=== PATIENT | male | born 1965 | race Caucasian/White ===

== ENCOUNTER 2024-11-12 08:29 | Outpatient (AMB) | payer OTHER, SELFPAY ==
--- OUTSIDE RECORDS SUMMARY | 2024-11-12 08:40 | XMS_ITS | Clinical Summary ---
Author Organization [facility] Address [address] [facility] [address] [place] [address] Care Team Providers Care Manager Lighting Name Role Phone Colt Birmingham MD Primary Care Provider [phone] Encounters Date Type Department Care Team Description 10/08/2024 Telephone [facility] Neurology [address] [place] [address] Nikolas Tipton MD from Last 3 Months Social History Tobacco Use Types Packs/Day Years Used Date Smoking Tobacco: Never Assessed Sex and Gender Information Value Date Recorded Sex Assigned at Male 11/03/2024 2:08 PM EDT Legal Sex Male 2:49 PM EDT Gender Identity Male 11/03/2024 2:08 PM EDT Sexual Orientation Not on file Plan of Treatment Health Maintenance Due Date Last Done Comments CT Colonography 1964 Colonoscopy 1964 Colorectal Cancer Screening 1964 FIT-DNA 1964 FIT 1964 FOBT 1965 HIV Screening 1964 Lipid Panel 1964 Sigmoidoscopy 1964 MMR Vaccines (1 of 1 - Standard series) 01/03/1965 Hepatitis C Screening 01/03/1982 Pneumococcal Vaccine: 50+ Years (1 of 1 - PCV) 01/03/2014 Zoster Vaccines (1 of 2) 01/03/2014 DTaP/Tdap/Td Vaccines (1 - Tdap) 05/24/2019 05/23/2019 Depression Screening 04/09/2024 Influenza Vaccine (#1) 2024 01/16/2024, 2019 COVID-19 Vaccine Completed 01/16/2024, , 06/03/2020, Additional history exists HIB Vaccines Aged Out No longer eligi ble based on patient's age to complete this topic HPV Vaccines Aged Out No longer eligi ble based on patient's age to complete this topic Hepatitis A Vaccines Aged Out No long er eligible based on patient's age to complete this topic Hepatitis B Vaccines Aged Out No long er eligible based on patient's age to complete this topic IPV Vaccines Aged Out No longer eligi ble based on patient's age to complete this topic Meningococcal B Vaccine Aged Out No l onger eligible based on patient's age to complete this topic Meningococcal Vaccine Aged Out No melvin joaquin eligible based on patient's age to complete this topic Rotavirus Vaccines Aged Out No longer eligible based on patient's age to complete this topic Insurance [facility] HMO [place], [place] Care Teams Manager Lighting Relationship Specialty Start Date End Date Colt Birmingham MD [address] [place] [id number] PCP - General Flying [employer] Worker 09/19/24
--- OUTSIDE RECORDS SUMMARY | 2024-11-12 08:40 | XMS_ITS | Clinical Summary ---
Author Organization [facility] Address [address] [place] [address] Care Team Providers Care Nut Roaster Helper Name Role Phone Hari Adkins MD Primary Care Provider [phone] Allergies Active Allergy Reactions Criticality Noted Date Comments Aspirin Other (See Comments) 07/09/2014 Stomach ache and dizziness Pollen Extract 11/29/2016 Seasonal 11/29/2016 Medications Medication Sig Dispensed Refills Start Date End Date Status HYDROcodone-acetamin ophen (NORCO) 5-325 MG per tablet Take 1-2 tabs every 4 hours as needed for pain following your right shoulder surgery 40 tablet 0 04/26/2022 Active Active Problems Problem Noted Date Diagnosed Date Radial tunnel syndrome, right 06/14/2022 Radial tunnel syndrome, left 06/14/2022 Subacromial bursitis of right shoulder joint Impingement syndrome of right shoulder Calcific tendinitis of right shoulder 12/06/2021 Postop check 02/05/2018 Chronic left shoulder pain 01/09/2018 Arthritis of left acromioclavicular joint 2017 Shoulder stiffness, right 05/29/2017 Chronic right shoulder pain 11/29/2016 Family History Medical History Relation Name Comments Diabetes Father Hypertension Father Cancer Maternal Aunt Hypertension Maternal Grandfather Hypertension Maternal Grandmother Cancer Maternal Uncle Hypertension Mother Hypertension Paternal Grandfather Hypertension Paternal Grandmother Relation Name Status Comments Father Maternal Aunt Maternal Grandfather Maternal Grandmother Maternal Uncle Mother Paternal Grandfather Paternal Grandmother Social History Tobacco Use Types Packs/Day Years Used Date Smoking Tobacco: Never Alcohol Use Standard Drinks/Week Comments Yes 0 (1 standard drink = 0.6 oz pur e alcohol) social Sex and Gender Information Value Date Recorded Sex Assigned at Male 06/14/2022 9:38 AM EST Gender Identity Male 06/14/2022 9:38 AM EST Sexual Orientation Not on file Job Start Date Occupation Industry Not on file Not on file Not on file Last Filed Vital Signs Vital Sign Reading Time Taken Comments Blood Pressure - - Pulse - - Temperature - - Respiratory Rate - - Oxygen Saturation - - Inhaled Oxygen Concentration - - Weight 80.7 kg (178 lb) 06/14/2022 9:13 AM EST Height 175.3 cm (5' 9 ) 06/14/2022 9:13 AM EST Body Mass Index 26.29 06/14/2022 9:13 AM EST Plan of Treatment Health Maintenance Due Date Last Done Comments Hepatitis C Screening 1964 COVID-19 Vaccine (#1) 1964 Depression Screening 1976 BMI Counseling 01/03/1982 Preventative Health Evaluation 01/03/1982 Colon Cancer Screening (Colonoscopy) 01/03/2009 Shingrix-Zoster Vaccine (1 of 2) 01/03/2014 DTap / Tdap / Td (1 - Tdap) 05/24/2019 05/23/2019 Influenza Vaccine (#1) 2024 03/24/2020 RSV Adult > 60+ Yrs or Pregn ant (1 - 1-dose 75+ series) 01/03/2039 Hepatitis B Vaccines Aged Out No long er eligible based on patient's age to complete this topic Pneumococcal Vaccine Aged Out No long er eligible based on patient's age to complete this topic RSV Ped < 20 months Aged Out No longe r eligible based on patient's age to complete this topic Care Teams Nut Roaster Helper Relationship Specialty Start Date End Date Hari Adkins MD [address] [place] [id number] PCP - General Internal Medicine 11/17/16
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
--- NOTE | 2024-11-12 08:42 | MHC.OFFVIS ---
Vital Signs 11/12/24 08:53 Weight 173 lb BP 120/84 Blood Pressure Location Rt brachial Position Sitting Pulse 67 Pulse Source Pulse Oximeter Pulse Oximetry (%) 96 Oxygen Delivery Method Room Air Intake Visit Reasons: ENP-Tremor of Right Hand Intake Note: NPV referred by PCP Colt [place] for tremor of right hand- has been occurring for about 6-7 month and weakness. Feeling pins and needles Allergies aspirin Allergy (Verified 11/12/24 08:49) Unknown HPI Comments Details: 59y/o Right handed male comes for evaluation of Right hand tremor. About 2 1/2 years ago he had Right shoulder injury and had ? fracture .He did not do rehab . He had numbness and tingling after surgery but has improved. He also has weakness and difficulty with hand movements . He noticed tremors at rest in his right hand about mths which is intermittent and mostly when he is relaxed. No voice change. His handwriting is poor - cannot write anymore. Using utensils- difficult Dressing- slower Shower- slower Turning in bed - hard Gait-feels his balance is off. No falls No depression or anxiety Sleep- He always talked in sleep Normal bowel movements No hallucinations Cognition- mild No exposure to pesticides , agent orange toxins etc No exposure to neuroleptics He had a mild head injury - more than 5 years ago No family history He has increased frequency and urgency [facility] Medical History (Updated 11/12/24 @ 10:40 by Linda Do MD) Tremor of right hand Right shoulder injury Hyperlipemia Pinguecula Glaucoma Tremor of right hand Surgical History (Updated 11/12/24 @ 08:57 by Blanca Limon CMA) Hx of colonoscopy H/O rotator cuff surgery Physical Exam Const Orientation/consciousness: patient oriented x3 Eyes Pupils: Equal, round and reactive pupils present Neck Neck: Yes no meningeal signs Neuro Other: Right hand intermittent rest tremors Right UE 1 + cogwheel rigidty FFM and foot taps - mild decreased on the right Gait- normal base, normal stride and posture, mild decreased arm swing on the Right decreased shoulder shrug on the right Mild decreased blink , normal facial expression General: patient oriented x3, moves all extremities, no meningeal signs and no focal motor deficits Cranial nerves: Yes Equal, round and reactive pupils present, Yes Bilaterally intact EOM present, Yes Nystagmus not present, Yes Normal facial strength present, Yes Midline tongue present and Yes Symmetric palate elevation present Cognition (Neuro): normal cognition Motor exam (neuro): Tremors during motor activity present Deep tendon reflexes (DTR's): Right triceps reflex intensity grade: 1+, Left triceps reflex intensity grade: 1+, Rt Biceps (C5, C6): 1+, Left biceps reflex intensity grade: 1+, Right brachioradialis reflex intensity grade: 1+, Left brachioradialis reflex intensity grade: 1+, Right patellar reflex intensity grade: 1+ and Left patellar reflex intensity grade: 1+ Coordination: [id number] test normal Assessment & Plan Assessment & Plan (1) Tremor of right hand: Comment: likely Parkinsons Code(s): R25.1 - Tremor, unspecified Category: Medical (2) Right shoulder injury: Code(s): S49.91XA - Unspecified injury of right shoulder and upper arm, initial encounter Category: Medical Qualifiers: Encounter type: sequela Qualified Code(s): S49.91XS - Unspecified injury of right shoulder and upper arm, sequela Plan Discussed the diagnosis in detail I will evaluate him with MRI brain - will consider DMITRY scan Refer to OT for hand and shoulder therapy F/u Info on APDA, PDF was given This was a counseling predominated session Orders: Orders OT Evaluation and Treatment Today R25.1 - Tremor, unspecified, S49.91XA - Unspecified injury of right shoulder and upper arm, initial encounter MR head/brain wo con Today R25.1 - Tremor, unspecified Coding Level of Care Code New Pt Level 4 (70845) Diagnoses Tremor of right hand R25.1 Injury of right shoulder, sequela S49.91XS Encounter type: sequela
[2024-11-12 08:53] VITALS: BP 120/84; PULSE 67; O2SAT 96
== END 2024-11-12 10:13 | disposition home or self-care (01) ==
PROVIDERS: Visit Provider Psychiatry & Neurology Neurology
DX: R25.1 Tremor, unspecified (principal); S49.91XS Unspecified injury of right shoulder and upper arm, sequela
CPT/HCPCS: 99204

== ENCOUNTER → 2024-12-01 08:07 | Outpatient (BNV) | payer OTHER, SELFPAY | PROVIDERS: Visit Provider Radiology Diagnostic Radiology | DX: R25.1 Tremor, unspecified (principal) | CPT/HCPCS: 70551 ==

== ENCOUNTER 2024-12-01 08:11 | Outpatient (REF) | payer OTHER, SELFPAY ==
--- NOTE | ~2024-12-01 | MR_ITS ---
EXAMINATION: MR BRAIN WITHOUT CONTRAST CLINICAL INFORMATION: Tremors, unspecified. COMPARISON: None available. TECHNIQUE: MRI of the brain was obtained using routine sequences without contrast. FINDINGS: No restricted diffusion. No susceptibility signal abnormality within the substantia nigra. No absent swallow tail sign. No acute intracranial hemorrhage, mass effect, midline shift, hydrocephalus or herniation. Romero-white matter differentiation is normal. Flow-void signal within the main cerebral vessels is normal. Posterior cranial fossa contents demonstrated no signal abnormality or mass effect. Normal position of the cerebellar tonsils. Sellar/suprasellar region is normal. Small cavum septum pellucidum, congenital. Slight elevated position of the right internal jugular bulb. MR/MR head/brain wo con IMPRESSION: No acute or structural brain abnormality. Electronically signed by: Chris Fowler MD 12/01/2024 09:17 AM EDT
--- OUTSIDE RECORDS SUMMARY | 2024-12-01 08:26 | XMS_ITS | Clinical Summary ---
Author Organization [facility] Address [address] [place] [address] Care Team Providers Care Note Keeper Name Role Phone Hari Adkins MD Primary Care Provider [phone] Allergies Active Allergy Reactions Criticality Noted Date [...] age to complete this topic Care Teams Note Keeper Relationship Specialty Start Date End Date Hari Adkins MD [address] [place] [id number] PCP - General Internal Medicine 11/17/16
--- OUTSIDE RECORDS SUMMARY | 2024-12-01 08:26 | XMS_ITS | Clinical Summary ---
Author Organization [facility] Address [address] [facility] [address] [place] [address] Care Team Providers Care Woodwinds Teacher Name Role Phone Colt [place] MD Primary Care Provider [phone] Encounters Date Type Department Care Team Description 10/08/2024 Telephone [facility] Neurology [address] [place] [address] Nikolas Tipton MD from Last [...] patient's age to complete this topic Insurance [facility] HMO [place], [place] Care Teams Woodwinds Teacher Relationship Specialty Start Date End Date Colt [place] MD [address] [place] [id number] PCP - General Whiting Can Worker 09/19/24
--- OUTSIDE RECORDS SUMMARY | 2024-12-01 08:26 | XMS_ITS | Clinical Summary ---
Author Organization [facility] [address] Counts [address] [facility] Building Address [address] [place] [address] Phone Care Team Providers Care Personal Loan Specialist Name Role Phone Colt [place] MD Primary Care Provider [phone] Allergies Active Allergy Reactions Criticality Noted Date [...] Description 11/04/2024 8:08 AM EDT Anesthesia Event [facility]oscopy [address] [place] [address] Roni Slade MD 11/04/2024 7:37 AM EDT - 11/04/2024 11:59 PM EDT Hospital Encounter [facility] [address] [place] [address] Amanda Coleman DO Vermes, Rachie, CRNA Walsh, Michael, DO Colon cancer screening Discharge Disposition: Home or Self Care from Last 3 Months Immunizations Name Administration [...] 11/04/2024 8:24 AM EDT Colon cancer screening LIPID PANEL WITH REFLEX TO DIRECT LDL Routine 08/20/2024 8:45 AM EDT Screening for hyperlipidemia HM HEPATITIS C SCREENING Routine 02/21/2017 from [...] care physician. Narrative 11/04/2024 8:23 AM EDT [facility] GI Patient Name: Kyle Geiger Procedure Date: 11/04/2024 8:00 AM Date of : 1965 Age: 59 Gender: Male Note Status: Finalized Attending MD: Amanda Coleman DO, [id number] Procedure Date No Time: 11/04/2024 Procedure: Colonoscopy [...] the physician, the nurse, the anesthesiologist, the sponge fisherman and the location and measurement technician in the pre-procedure area in the [...] colon K64.9, Unspecified hemorrhoids CPT copyright 2020 [employer]. All rights reserved. The codes documented in this report are preliminary and upon dice manager review may be revised to meet current compliance requirements. AMANDA Coleman DO 11/04/2024 8:23:31 AM This report has been signed electronically.Amanda Coleman DO Number of Addenda: 0 Note Initiated On: 11/04/2024 8:00 AM Scope Withdrawal Time: 0 hours 6 minutes 27 seconds Scope In: 8:12:46 AM Scope Out: 8:22:26 AM Endoscopy Department at [facility] - [address] [place] [id number] Procedure Note Amanda Coleman DO - 11/04/2024 [facility] GI Patient Name: Kyle Geiger Procedure Date: 11/04/2024 8:00 AM Date of : 1965 Age: 59 Gender: Male Note Status: Finalized Attending MD: Amanda Coleman DO, [id number] Procedure Date No Time: 11/04/2024 Procedure: Colonoscopy [...] the physician, the nurse, the anesthesiologist, the sponge fisherman and thetechnician in the pre-procedure area in [...] colon K64.9, Unspecified hemorrhoids CPT copyright 2020 [employer]. All rights reserved. The codes documented in this report are preliminary and upon dice manager reviewmay be revised to meet current compliance requirements. AMANDA Coleman DO 11/04/2024 8:23:31 AM This report has been signed electronically.Amanda Coleman DO Number of Addenda: 0 Note Initiated On: 11/04/2024 8:00 AM Scope Withdrawal Time: 0 hours 6 minutes 27 seconds Scope In: 8:12:46 AM Scope Out: 8:22:26 AM Endoscopy Department at [facility] - [address] [place] [phone] IMPRESSION: - Hemorrhoids found on perianal exam. - The entire examined colon is normal on direct and retroflexion views. - No specimens collected. Recommendation: - Discharge patient to home. - Resume previous diet. - Continue present medications. - Repeat colonoscopy in 10 years for screening purposes. - Return to primary care physician. Amanda Coleman DO GI~PROCEDURE ORDERABLES Final Re sult * (ABNORMAL) Lipid panel with reflex to direct LDL (08/20/2024 8:45 AM EDT) Cholesterol 248(H) 0 - 200 mg/dL LAB CHEMISTRY METHOD 08/20/2024 12:26 PM EDT [facility] Triglycerides 51 0 - 150 mg/dL LAB CHEMISTRY METHOD 08/20/2024 12:26 PM EDT [facility] HDL 94 >=40 mg/dL LAB CHEMISTRY METHOD 08/20/2024 12:26 PM EDT [facility] LDL Calculated 144(H) 0 - 100 mg/dL LAB CHEMISTRY METHOD 08/20/2024 12:26 PM EDT [facility] VLDL Cholesterol Jared 10.2 mg/dL LAB CHEMISTRY METHOD 08/20/2024 12:26 PM EDT [facility] Non HDL Chol. (LDL+VLDL) 154(H) <145 mg/dL LAB CHEMISTRY METHOD 08/20/2024 12:26 PM EDT [facility] Chol/HDL Ratio 2.6 0.0 - 4.4 LAB CHEMISTRY METHOD 08/20/2024 12:26 PM EDT [facility] Blood Venous blood specimen / Unknown Venipuncture / Unknown 08/20/2024 8:45 AM EDT 08/20/2024 8:45 AM EDT Colt [place] MD LAB BLOOD ORDERABLES Final Res ult [facility] [address] [place] [address], * Hepatitis C Screening (02/21/2017) [facility] Hepatitis C Screening abstracted Historical Provider HEALTH MAINTENANCE Final Result from Last 3 Months or Most Recently Relevant to Health Maintenance Insurance [facility] Care Teams Personal Loan Specialist Relationship Specialty Start Date End Date Colt [place] MD [address] [place] [id number] PCP - General Internal Medicine 03/18/24
--- OUTSIDE RECORDS SUMMARY | 2024-12-01 08:26 | XMS_ITS ---
[facility] Encounters Encounter Type Encounter Reason Primary Diagnosis Location Date Ambulatory [facility] [place] 02/20/2023 Ambulatory [facility] [place] 01/05/2023 Ambulatory [facility] [place] 01/05/2023 Ambulatory [facility] [place] 12/14/2022 Ambulatory [facility] [place] 11/09/2022 Ambulatory [facility] [place] 11/09/2022 Ambulatory [facility] [place] 11/09/2022 Ambulatory [facility] [place] 11/09/2022 Ambulatory [facility] [place] 10/05/2022 Ambulatory [facility] [place] 08/14/2022 Ambulatory [facility] [place] 08/14/2022 Ambulatory [facility] [place] 08/10/2022 Ambulatory [facility] [place] 08/04/2022 Care Team Organization Name Specialty Phone Email Start Date End Da te [facility] [place] H[facility]ILTON [facility]PSON Primary Care 03/09/2022 11/26/2023
== END 2024-12-01 08:12 | disposition home or self-care (01) ==
LOC: HO.MRI 08:11
PROVIDERS: Visit Provider Psychiatry & Neurology Neurology
DX: R25.1 Tremor, unspecified (principal)
CPT/HCPCS: 70551

== ENCOUNTER 2025-03-19 12:29 | Outpatient (AMB) | payer OTHER, SELFPAY ==
--- NOTE | 2025-03-19 12:23 | MHC.OFFVIS ---
Vital Signs 03/19/25 12:32 Height 5 ft 9 in Weight 182 lb 8 oz BMI 26.9 BP 142/86 H Blood Pressure Location Rt brachial Position Sitting Pulse 71 Pulse Source Pulse Oximeter Pulse Oximetry (%) 97 Oxygen Delivery Method Room Air Intake Visit Reasons: 4mnth follow up Intake Note: Follow up Right shoulder injury, tremor right hand Video Production Intern Required: No Accompanied by: Self / Same As Patient Allergies aspirin Allergy (Verified 03/19/25 12:23) Unknown Medication List - Last Reconciled 03/19/25 by Linda Do MD No Known Home Meds HPI Comments Details: 59y/o Right handed male comes for follow up of Right hand tremor. he noticed decrease in tremors He has left sciatica and is walking funny because of it. History from his initial visit- bout 2 1/2 years ago he had Right shoulder injury and had ? fracture .He did not do rehab . He had numbness and tingling after surgery but has improved. He also has weakness and difficulty with hand movements . He noticed tremors at rest in his right hand about mths which is intermittent and mostly when he is relaxed. No voice change. His handwriting is poor - cannot write anymore. Using utensils- difficult Dressing- slower Shower- slower Turning in bed - hard Gait-feels his balance is off. No falls No depression or anxiety Sleep- He always talked in sleep Normal bowel movements No hallucinations Cognition- mild No exposure to pesticides , agent orange toxins etc No exposure to neuroleptics He had a mild head injury - more than 5 years ago No family history He has increased frequency and urgency [facility] Medical History Tremor of right hand Right shoulder injury Hyperlipemia Pinguecula Glaucoma Tremor of right hand Surgical History Hx of colonoscopy H/O rotator cuff surgery Physical Exam Vital Signs: Last Vital Signs Pulse 71 03/19/25 12:32 BP 142/86 H 03/19/25 12:32 Pulse Ox 97 03/19/25 12:32 Oxygen Delivery Method Room Air 03/19/25 12:32 BMI result Body Mass Index 26.9 Const Orientation/consciousness: patient oriented x3 Eyes Pupils: Equal, round and reactive pupils present Neck Neck: Yes no meningeal signs Neuro Other: Right hand intermittent rest tremors Right UE 1 + cogwheel rigidty FFM and foot taps - mild decreased on the right Gait- normal base, normal stride and posture, mild decreased arm swing on the Right decreased shoulder shrug on the right Mild decreased blink , normal facial expression General: patient oriented x3, moves all extremities, no meningeal signs and no focal motor deficits Cranial nerves: Yes Equal, round and reactive pupils present, Yes Bilaterally intact EOM present, Yes Nystagmus not present, Yes Normal facial strength present, Yes Midline tongue present and Yes Symmetric palate elevation present Cognition (Neuro): normal cognition Motor exam (neuro): Tremors during motor activity present Coordination: [id number]-zj-qquh test normal Assessment & Plan Assessment & Plan (1) Tremor of right hand: Comment: likely Parkinsons Code(s): R25.1 - Tremor, unspecified Category: Medical (2) Right shoulder injury: Code(s): S49.91XA - Unspecified injury of right shoulder and upper arm, initial encounter Category: Medical Qualifiers: Encounter type: sequela Qualified Code(s): S49.91XS - Unspecified injury of right shoulder and upper arm, sequela Plan MRI brain - normal - will consider DMITRY scan Refer to OT for hand and shoulder therapy F/u Info on APDA, PDF was given This was a counseling predominated session Coding Level of Care Code Est Pt Level 4 (57613) Add On Problem Visit Only Diagnoses Tremor of right hand R25.1 Injury of right shoulder, sequela S49.91XS Encounter type: sequela
[2025-03-19 12:32] VITALS: BP 142/86; PULSE 71; O2SAT 97; BMI 26.9
--- OUTSIDE RECORDS SUMMARY | 2025-03-19 18:46 | XMS_ITS | Clinical Summary ---
Author Organization [facility] [address] [facility] Building Address [address] [place] [address] Phone Care Team Providers Care Fire Services Plumber Name Role Phone Colt [place] MD Primary Care Provider [phone] Allergies Active Allergy Reactions Criticality Noted Date [...] Glaucoma suspect 05/18/2010 Pinguecula 05/18/2010 Hyperlipidemia 12/30/2009 Immunizations Immunization Administration Dates Next Due Influenza Quadravalent, MDCK [...] Safety Answer Date Record ed Physical Abuse Unrecognized value 11/04/2024 Verbal Abuse Unrecognized value 11/04/2024 Sex and Gender Information Value Date Recorded Sex Assigned at Male 10/22/2024 3:12 PM EDT Legal Sex Male 4:48 PM EST Gender Identity Male 10/22/2024 3:12 PM EDT Sexual Orientation Not on file Last Filed Vital Signs [...] of Health Screening 03/19/2022 Depression Screening 04/09/2024 COVID-19 Vaccine (5 - season) 2024 01/16/2024, 05/25/2021, 06/03/2020, Additional history exists Influenza Vaccine (#1) 2024 01/16/2024, 2019 DTaP,Tdap,and Td Vaccines (2 - Td or Tdap) 05/23/2029 05/23/2019 Cholesterol Screening (Lipid Panel) 08/20/2029 08/20/2024 Colorectal Cancer Screening: Colonoscopy 11/04/2034 11/04/2024, 07/09/2014 RSV Immunization Adult Patients (1 - 1-dose 75+ series) 01/03/2039 Hepatitis C Screening Completed 02/21/2017 HIB Vaccines Aged Out No longer eligi [...] Maintenance Results * COLONOSCOPY Anesthesia - MAC; [facility] ENDOSCOPY (11/04/2024 8:24 AM EDT) Anatomical Region [...] care physician. Narrative 11/04/2024 8:23 AM EDT [facility] GI Patient Name: Kyle Geiger Procedure Date: 11/04/2024 8:00 AM Date of : 1965 Age: 59 Gender: Male Note Status: Finalized Attending MD: Amanda Coleman DO, [id number] Procedure Date No Time: 11/04/2024 Procedure: Colonoscopy [...] the physician, the nurse, the anesthesiologist, the certified physician's assistant and the technicians and trades workers in the pre-procedure area in the endoscopy [...] colon K64.9, Unspecified hemorrhoids CPT copyright 2020 [employer]. All rights reserved. The codes documented in this report are preliminary and upon social media campaign manager review may be revised to meet current compliance requirements. AMANDA Coleman DO 11/04/2024 8:23:31 AM This report has been signed electronically.Amanda [place] DO Number of Addenda: 0 Note Initiated On: 11/04/2024 8:00 AM Scope Withdrawal Time: 0 hours 6 minutes 27 seconds Scope In: 8:12:46 AM Scope Out: 8:22:26 AM Endoscopy Department at [facility] - [address] [place] [phone] Procedure Note Amanda Coleman DO - 11/04/2024 [facility] GI Patient Name: Kyle Geiger Procedure Date: 11/04/2024 8:00 AM Date of : 1965 Age: 59 Gender: Male Note Status: Finalized Attending MD: Amanda Coleman DO, [id number] Procedure Date No Time: 11/04/2024 Procedure: Colonoscopy [...] the physician, the nurse, the anesthesiologist, the certified physician's assistant and thetechnician in the pre-procedure area in [...] colon K64.9, Unspecified hemorrhoids CPT copyright 2020 [employer]. All rights reserved. The codes documented in this report are preliminary and upon social media campaign manager reviewmay be revised to meet current compliance requirements. AMANDA Coleman DO 11/04/2024 8:23:31 AM This report has been signed electronically.Amanda Coleman DO Number of Addenda: 0 Note Initiated On: 11/04/2024 8:00 AM Scope Withdrawal Time: 0 hours 6 minutes 27 seconds Scope In: 8:12:46 AM Scope Out: 8:22:26 AM Endoscopy Department at [facility] - [address] [place] [phone] IMPRESSION: - Hemorrhoids found on perianal exam. - The entire examined colon is normal on direct and retroflexion views. - No specimens collected. Recommendation: - Discharge patient to home. - Resume previous diet. - Continue present medications. - Repeat colonoscopy in 10 years for screening purposes. - Return to primary care physician. us Amanda Coleman DO GI~PROCEDURE ORDERABLES Final Re sult * (ABNORMAL) Lipid panel with reflex to direct LDL (08/20/2024 8:45 AM EDT) Cholesterol 248(H) 0 - 200 mg/dL LAB CHEMISTRY METHOD 08/20/2024 12:26 PM [facility] Triglycerides 51 0 - 150 mg/dL LAB CHEMISTRY METHOD 08/20/2024 12:26 PM [facility] HDL 94 >=40 mg/dL LAB CHEMISTRY METHOD 08/20/2024 12:26 PM T [facility] LDL Calculated 144(H) 0 - 100 mg/dL LAB CHEMISTRY METHOD 08/20/2024 12:26 PM [facility] VLDL Cholesterol Jared 10.2 mg/dL LAB CHEMISTRY METHOD 08/20/2024 12:26 PM [facility] Non HDL Chol. (LDL+VLDL) 154(H) <145 mg/dL LAB CHEMISTRY METHOD 08/20/2024 12:26 PM EDT [facility] Chol/HDL Ratio 2.6 0.0 - 4.4 LAB CHEMISTRY METHOD 08/20/2024 12:26 PM EDT [facility] Blood Venous blood specimen / Unknown Venipuncture / Unknown 08/20/2024 8:45 AM EDT 08/20/2024 8:45 AM EDT us Colt [place] MD LAB BLOOD ORDERABLES Final Res ult [facility] [address] [place] [address], * Hepatitis C Screening (02/21/2017) Pathologist [facility] Hepatitis C Screening abstracted Historical Provider HEALTH MAINTENANCE Final Result from Last 3 Months or Most Recently Relevant to Health Maintenance Insurance [facility] Care Teams Fire Services Plumber Relationship Specialty Start Date End Date Colt [place] MD [address] [place] [id number] PCP - General Internal Medicine 03/18/24
--- OUTSIDE RECORDS SUMMARY | 2025-03-19 18:46 | XMS_ITS | Clinical Summary ---
Author Organization [facility] Prior to 09/06/[address] [place] [address] Care Team Providers Care Spouter Name Role Phone Hari Adkins MD Primary Care Provider [phone] Allergies Active Allergy Reactions Criticality Noted Date [...] age to complete this topic Care Teams Spouter Relationship Specialty Start Date End Date Hari Adkins MD [facility] [address] [place] [address] PCP - General Internal Medicine 11/17/16
--- OUTSIDE RECORDS SUMMARY | 2025-03-19 18:47 | XMS_ITS | Clinical Summary ---
Author Organization [facility] Address [address] [facility] [address] [place] [address] Care Team Providers Care Call Center Associate Name Role Phone Colt [place] MD Primary Care Provider [phone] Social History Tobacco Use Types Packs/Day Years [...] - Tdap) 05/24/2019 05/23/2019 Depression Screening 04/09/2024 COVID-19 Vaccine ( - season) 2024 01/16/2024, 05/25/2021, 06/03/2020, Additional history exists Influenza Vaccine (#1) 2024 01/16/2024, 2019 HIB Vaccines Aged Out No longer eligi ble based on patient's age to complete this topic HPV Vaccines (No Doses Required) Completed Hepatitis A Vaccines Aged Out No long [...] patient's age to complete this topic Insurance [place] [facility] H[place], [place] Care Teams Call Center Associate Relationship Specialty Start Date End Date Colt [place] MD [address] [place] [id number] PCP - General Enhanced Environmental Operator 09/19/24
== END 2025-03-19 14:56 | disposition home or self-care (01) ==
PROVIDERS: Visit Provider Psychiatry & Neurology Neurology
DX: R25.1 Tremor, unspecified (principal); S49.91XS Unspecified injury of right shoulder and upper arm, sequela
CPT/HCPCS: 99214; G2211